=== PATIENT | female | born 2005 | race Caucasian/White ===

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

== ENCOUNTER 2024-05-04 07:03 | Day surgery (SDC) | payer OTHER ==
[~2024-05-04] VITALS: Ht 167.6 cm; Wt 82.6 kg
[~2024-05-04 07:03] MED LIST: ALBU8.5H; HYDR-643 PO; ISIB1TAB PO; LAMI1TAB8 PO; SERT50TA29 PO
[2024-05-04] MEDS ORDERED: LR 1,000 ML IV SCH ×2 (07:30→09:40)
[2024-05-04] MEDS ORDERED: propofoL 200 MG/20 ML VIAL As Ordered ONE (08:04)
[2024-05-04] MEDS ORDERED: LIDOCAINE 2% 100MG/5ML SDV (FOR ANES.) As Ordered ONE (08:04)
[2024-05-04] MEDS ORDERED: ROCURONIUM BROMIDE 50MG/5ML VIAL As Ordered ONE (08:04)
[2024-05-04] MEDS ORDERED: MIDAZOLAM INJ 2MG/2ML VIAL As Ordered ONE (08:05)
[2024-05-04] MEDS ORDERED: fentaNYL 250 MCG/5 ML INJECTION As Ordered ONE (08:05)
[2024-05-04] MEDS ORDERED: OXYMETAZOLINE 0.05% NASAL SPRAY As Ordered ONE (08:21)
[2024-05-04] MEDS: AMPICILLIN SOD/SULBACTAM SOD 3 GM in D5W MINI-BAG 100 ML IV ONE (08:30)
[2024-05-04] MEDS ORDERED: ACETAMINOPHEN 1000MG/100ML IV BAG As Ordered ONE (08:46)
[2024-05-04] MEDS: CHLORHEXIDINE GLUCONATE 0.12 % 15ML UDC (PERIDEX ORAL RINSE) As Ordered ONE (08:51)
[2024-05-04] MEDS: LIDOCAINE 2% W/ EPINEPHRINE 1.7 ML DENTAL INJ As Ordered ONE (08:52)
[2024-05-04] MEDS ORDERED: METOCLOPRAMIDE INJ 10MG/2ML VIAL As Ordered ONE (09:01)
[2024-05-04] MEDS ORDERED: KETOROLAC 30 MG/ML 1ML VIAL As Ordered ONE (09:02)
[2024-05-04] MEDS ORDERED: ONDANSETRON 4MG 2ML VIAL As Ordered ONE (09:02)
[2024-05-04] MEDS ORDERED: SUGAMMADEX SODIUM 500 MG/5 ML VIAL (BRIDION) As Ordered ONE (09:07)
[2024-05-04] MEDS: BUPivacaine LIPOSOME/PF 266MG 20ML VIAL (13.3MG/ML)(EXPAREL) As Ordered ONE (09:20)
[2024-05-04] MEDS ORDERED: oxyCODONE 5MG TAB PO PRN (09:40)
[2024-05-04] MEDS ORDERED: ONDANSETRON 4MG 2ML VIAL IV PRN (09:40)
[2024-05-04] MEDS ORDERED: HYDROMORPHONE HCL 0.5 MG/ 0.5 ML SYRINGE IV PRN (09:40)
[2024-05-04] MEDS ORDERED: fentaNYL 100 MCG/2 ML INJECTION IV PRN (09:40)
[2024-05-04 10:25] VITALS: BP 120/67
[2024-05-04 10:48] VITALS: TEMP 98.6; O2SAT 99
== END 2024-05-04 10:49 | disposition home or self-care (01) ==
LOC: M SDC 07:03
PROVIDERS: ATTEND Dentist
DX: K01.1 Impacted teeth (principal); K02.9 Dental caries, unspecified; F40.232 Fear of other medical care; Z79.899 Other long term (current) drug therapy
CPT/HCPCS: 81025; 88300; D7210; D7240; J0131; J0295; J0666; J1100; J1885; J2250; J2405; J2765; J3010